=== PATIENT | male | born 1995 | race African-American/Black ===

== ENCOUNTER 2016-09-12 12:08 | Inpatient (IN) | payer MEDICAID ==
[~2016-09-12 12:08] MED LIST: ACETYLCYST200 MG/1 M INH; ADRENALIN1 MG/1 M3 ITR; ALBUTEROL2.5 MG/0.1 INH; BISCOLAX10 MG PR; CALMOSEPTINE OI71 G1 TP; DURAGESIC1 EAC3 TOP; FIBER PEG; FLOMAX0.4 M1 PO; IPRATROPIU0.2 MG/1 M INH; LIDODERM1 EACH TOP; LIQUACEL LIQUID30 ML PEG; MIRALAX17 G2 PEG; MULTIVITAMINS1 EAC5 PO; NEURONTIN600 M1 PEG; ORAZINC220 M1 PO; ORGAN-I NR200 M1 PO; OXYCODONE HCL5 M1 PO; PERIDEX118 ML SSP; PIPERACIL-TA3.375 G1 IV; ROBINUL1 M1 PEG; SENNA8.6 M2 PO; SULFAMYLON SOL250 M1 TOP; SULFAMYLON60 GM TOP; VITAMIN C500 M3 PEG; XARELTO10 M1 PO; ZANTAC150 M1 PEG; [UNRECOGNIZED DRUG - OTHER] PEG; [UNRECOGNIZED DRUG - OTHER] TOP; [UNRECOGNIZED DRUG - REMARK]
[2016-09-14] MEDS ORDERED: ALBUTEROL2.5 MG/0.1 INH (13:37)
[2016-09-14] MEDS ORDERED: IPRATROPIU0.2 MG/1 M INH (13:37)
[2016-09-14] MEDS ORDERED: HALLS3.2 M1 MM (13:38)
[2016-09-14] MEDS ORDERED: MILK OF MAGNESIA PO (13:39)
[2016-09-14] MEDS ORDERED: TYLENOL325 M2 PO (13:39)
[2016-09-14] MEDS ORDERED: BISCOLAX10 MG PR (13:41)
[2016-09-14] MEDS ORDERED: ENEMEEZ283 MG/5 M PR (13:41)
[2016-09-14] MEDS ORDERED: FLEET ENEMA133 ML PR (13:42)
[2016-09-14] MEDS ORDERED: BACITRACIN28.4 G2 TP (13:43)
[2016-09-14] MEDS ORDERED: LIDOCAINE 2% GEL TP (13:44)
[2016-09-14] MEDS ORDERED: [UNRECOGNIZED DRUG - OTHER] TP (13:44)
[2016-09-14] MEDS ORDERED: LIDOCAINE 2% ITR (13:46)
== END 2016-09-14 13:40 | DRG 570 ==
LOC: SRG 12:08 → SHSB 12:16 → BURN 16:15
PROVIDERS: ADMIT Surgery
PROC: 0JB90ZZ Excision of Buttock Subcutaneous Tissue and Fascia, Open Approach (ICD-10-PCS; principal; 2016-09-12)
PROC: 0KXN0ZZ Transfer Right Hip Muscle, Open Approach (ICD-10-PCS; 2016-09-12)
DX: L89.314 Pressure ulcer of right buttock, stage 4 (principal); G82.50 Quadriplegia, unspecified; N31.9 Neuromuscular dysfunction of bladder, unspecified; F32.9 Major depressive disorder, single episode, unspecified; F41.9 Anxiety disorder, unspecified
CPT/HCPCS: J0171; J1580; J2543; J3370; J7030; J7050